=== PATIENT | male | born 1985 | race Caucasian/White ===

== ENCOUNTER 2018-03-21 16:32 | Emergency (ER) | END 2018-03-21 19:02 | disposition left against medical advice (07) ==

== ENCOUNTER 2018-05-05 17:54 | Emergency (ER) | END 2018-05-06 05:50 ==

== ENCOUNTER 2018-09-10 18:22 | Emergency (ER) | payer OTHER ==
[~2018-09-10] VITALS: Ht 167.6 cm; Wt 65.1 kg
[2018-09-10 18:26] VITALS: Ht 167.6 cm; Wt 65.1 kg
[2018-09-10] MEDS ORDERED: LORAZEPAM 2 MG INJ IM ONE (22:30)
[2018-09-11] MEDS ORDERED: QUET100T32 PO
[2018-09-11] MEDS ORDERED: GABA100C14 PO
[2018-09-11] MEDS ORDERED: ESCI20TA38 PO
[2018-09-11 00:21] VITALS: BP 125/65; PULSE 72; RESP 16
--- NOTE | 2018-09-25 02:35 | ERD ---
ER Documentation Chief Complaint Chief Complaint took meth 3 days ago, insomnia, poor appetite, anxious. HPI This is a 32-year-old male 10 minutes on over the past 3 days now complains of i nsomnia and poor appetite and anxiety. Denies suicidal homicidal ideation. Denies auditory or visual hallucinations. Denies any other current complaints. ROS All systems reviewed and are negative except as per history of present illness. Medications Home Meds Reported Medications Gabapentin* (Gabapentin*) 100 Mg Capsule, 100 MG PO QHS for 30 Days, #30 09/11/18 Escitalopram Oxalate* (Escitalopram Oxalate*) 20 Mg Tablet, 20 MG PO QAM for 30 Days, #30 09/11/18 Quetiapine Fumarate* (Quetiapine Fumarate*) 100 Mg Tablet, 100 MG PO QHS for 30 Days, #30 09/11/18 Allergies Allergies: Coded Allergies: codeine (Verified Allergy, Unknown, 09/10/18) PMhx/Soc Medical and Surgical Hx: pt denies Surgical Hx Hx Psychiatric Problems: Yes (auditory hallucinations) Hx Miscellaneous Medical Probl: Yes (drug abuse) Hx Alcohol Use: Yes Hx Substance Use: Yes (meth, heroin) Hx Tobacco Use: Yes Smoking Status: Current every day smoker Physical Exam Physical Exam Const: No acute distress Head: Atraumatic Eyes: Normal Conjunctiva ENT: Normal External Ears, Nose and Mouth. Neck: Full range of motion. No meningismus. Resp: Clear to auscultation bilaterally Cardio: Regular rate and rhythm, no murmurs Abd: Soft, non tender, non distended. Normal bowel sounds Skin: No petechiae or rashes Back: No midline or flank tenderness Ext: No cyanosis, or edema Neur: Awake and alert Psych: Normal Mood and Affect Results 24 hrs Current Medications Medications Dose Sig/Suma Start Time Status Last (Trade) Ordered Route PRN Stop Time Admin Dose Reason Admin Lorazepam 2 mg ONCE ONCE 09/10/18 DC 09/10/18 (Ativan) IM 22:30 22:32 09/10/18 22:31 Procedures/MDM Medical decision makin mL with drug abuse. Treated with lorazepam with good response. Advised stop using drugs. Follow-up with PCP. Return for worsening symptoms. Departure Diagnosis: Primary Impression: Drug abuse Condition: Stable Patient Instructions: Drug Abuse EDY PRATT Sep 25, 2018 02:35
== END 2018-09-11 00:22 | disposition home or self-care (01) ==
LOC: E/R 18:22
DX: F15.10 Other stimulant abuse, uncomplicated (principal); F17.210 Nicotine dependence, cigarettes, uncomplicated
CPT/HCPCS: 96372; J2060; Z7502

== ENCOUNTER 2018-11-10 12:57 | Emergency (ER) | payer OTHER ==
[~2018-11-10] VITALS: Ht 167.6 cm; Wt 62.0 kg
[~2018-11-10 12:57] MED LIST: ESCI20TA38 PO; GABA100C14 PO; QUET100T32 PO
[2018-11-10 13:01] VITALS: Ht 167.6 cm; Wt 62.0 kg
--- NOTE | 2018-11-10 14:52 | PSY ---
Date/Time of Note Date/Time of Note DATE: 11/10/18 TIME: 17:49 Psychiatric Subjective Eval Consent Pt consented to telemedicine: Yes Subjective Evaluation Patient location: emergency Chief Complaint: pt is bib girlfriend with c/o meth use and unable to sleep for a few days History of present illness HPI: 33 yo male wtih ho cocaine use, bib girlfriend due to using cocaine and heroin and amphetamine and not sleeping, as well as AH ("musical"). Pt denies si but nurse reports pt had mentioned si upon arrival. pt reports he was feeling very stressed. Past Psych Hx: + ho psych admits and - suicide attempts PMHx: + ho epilepsy Meds: none allergies: codeine MSE: pt very agitated, constantly moving, cooperative, shirtless, many tattoos, slightly elevated irritable mood, circumsstantial, denies delusions + Ah denies si Imp: 33 yo male with psycosis, substance use vol psych admit utox for moderate agitation zyprexa 5mg po prn for severe agitation chlorpromazine 25mg imp rn Medical history Problems Medical Problems: (1) Drug abuse Status: Acute (2) Drug abuse Status: Acute (3) Heroin abuse Status: Acute (4) Suicidal ideation Status: Acute Allergies: Coded Allergies: codeine (Verified Allergy, Unknown, 09/10/18) Assessment and Plan Recommendation/Plan Multiple antipsychotics: No Discharge Disposition: Psychiatric inpatient Legal Status: Voluntary [place] GRIMES November 10, 2018 14:52
[2018-11-10] MEDS ORDERED: DIAZEPAM 5 MG TAB PO ONE (16:00)
[2018-11-10 17:09] VITALS: BP 130/68; PULSE 99; RESP 20
--- NOTE | 2018-11-10 17:14 | ERD ---
ER Documentation Chief Complaint Chief Complaint pt is bib girlfriend with c/o meth use and unable to sleep for a few days HPI This is a 33-year-old male with a past medical history of psychosis and polysubstance abuse who is presenting with concerns of substance-induced psychosis. The patient reports using meth and heroin daily. He reports that he has not been able to sleep for over 3 days and he is starting to hear things. H e endorses auditory hallucinations, and he reports that they have started to become very dark, but he does not elaborate further. He does report that the voices never tell him to harm himself. he does not endorse suicidal or homicidal ideations. He does not endorse visual hallucinations. The patient denies feeling sick recently. The patient denies fever or chills. The patient has had no headache or vision changes. The patient does not endorse neck or back pain. The patient denies lightheadedness or dizziness. The patient has had no chest pain or trouble breathing. The patient denies nausea or vomiting. The patient denies abdominal pain. The patient denies changes to bowel movements or urination. The patient has had no focal deficits. The patient has had no weakness or numbness or tingling to the face or extremities. ROS All systems reviewed and are negative except as per history of present illness. Medications Home Meds Reported Medications Gabapentin* (Gabapentin*) 100 Mg Capsule, 100 MG PO QHS for 30 Days, #30 09/11/18 Escitalopram Oxalate* (Escitalopram Oxalate*) 20 Mg Tablet, 20 MG PO QAM for 30 Days, #30 09/11/18 Quetiapine Fumarate* (Quetiapine Fumarate*) 100 Mg Tablet, 100 MG PO QHS for 30 Days, #30 09/11/18 Allergies Allergies: Coded Allergies: codeine (Verified Allergy, Unknown, 09/10/18) PMhx/Soc History of Surgery: No Hx Neurological Disorder: No Hx Respiratory Disorders: No Hx Cardiac Disorders: No Hx Psychiatric Problems: Yes (auditory hallucinations) Hx Miscellaneous Medical Probl: Yes (drug abuse) Hx Alcohol Use: Yes Hx Substance Use: Yes (meth, heroin) Hx Tobacco Use: Yes Smoking Status: Current every day smoker FmHx Family History: No diabetes Physical Exam Vitals Vital Signs Date Temp Pulse Resp B/P (MAP) Pulse Ox O2 O2 Flow FiO2 Time Delivery Rate 5/11/19 98.3 132 18 130/74 98 13:01 (92) Physical Exam Const: No acute distress Head: Atraumatic Eyes: Normal Conjunctiva ENT: Normal External Ears, Nose and Mouth. Neck: Full range of motion. No meningismus. Resp: Clear to auscultation bilaterally Cardio: Regular rhythm, tachycardia, no murmurs Abd: Soft, non tender, non distended. Normal bowel sounds Skin: No petechiae or rashes Back: No midline or flank tenderness Ext: No cyanosis, or edema Neur: Awake and alert Psych: Anxious, agitated, fidgety, reported auditory hallucinations, no visual hallucinations, no suicidal or homicidal ideations. Result Diagram: 11/10/18 1501 11/10/18 1501 Results 24 hrs Laboratory Tests Test 11/10/18 15:01 11/10/18 16:00 White Blood Count 14.0 10^3/ul Red Blood Count 4.62 10^6/ul Hemoglobin 13.3 g/dl Hematocrit 39.7 % Mean Corpuscular Volume 85.9 fl Mean Corpuscular Hemoglobin 28.8 pg Mean Corpuscular Hemoglobin Concent 33.5 g/dl Red Cell Distribution Width 13.9 % Platelet Count 373 10^3/UL Mean Platelet Volume 11.6 fl Immature Granulocytes % 0.400 % Neutrophils % 75.9 % Lymphocytes % 13.2 % Monocytes % 9.8 % Eosinophils % 0.2 % Basophils % 0.5 % Nucleated Red Blood Cells % 0.0 /100WBC Immature Granulocytes # 0.050 10^3/ul Neutrophils # 10.7 10^3/ul Lymphocytes # 1.9 10^3/ul Monocytes # 1.4 10^3/ul Eosinophils # 0.0 10^3/ul Basophils # 0.1 10^3/ul Nucleated Red Blood Cells # 0.0 10^3/ul Sodium Level 144 mmol/L Potassium Level 4.0 mmol/L Chloride Level 105 mmol/L Carbon Dioxide Level 25 mmol/L Anion Gap 14 Blood Urea Nitrogen 38 mg/dl Creatinine 1.38 mg/dl Est Glomerular Filtrat Rate mL/min > 60 mL/min Glucose Level 117 mg/dl Calcium Level 10.3 mg/dl Total Bilirubin 0.5 mg/dl Direct Bilirubin 0.00 mg/dl Indirect Bilirubin 0.5 mg/dl Aspartate Amino Transf (AST/SGOT) 100 IU/L Alanine Aminotransferase (ALT/SGPT) 52 IU/L Alkaline Phosphatase 109 IU/L Total Protein 9.1 g/dl Albumin 5.3 g/dl Globulin 3.80 g/dl Albumin/Globulin Ratio 1.39 Salicylates Level < 1.0 mg/dl Acetaminophen Level < 10.0 ug/ml Ethyl Alcohol Level < 10.0 mg/dl Urine Color YELLOW Urine Clarity SLIGHTLY CLOUDY Urine pH 5.0 Urine Specific [place] 1.033 Urine Ketones 1+ mg/dL Urine Nitrite NEGATIVE mg/dL Urine Bilirubin NEGATIVE mg/dL Urine Urobilinogen NEGATIVE mg/dL Urine Leukocyte Esterase NEGATIVE James/ul Urine Microscopic RBC 1 /HPF Urine Microscopic WBC 4 /HPF Urine Mucus MANY /HPF Urine Hemoglobin NEGATIVE mg/dL Urine Glucose NEGATIVE mg/dL Urine Total Protein 1+ mg/dl Urine Opiates Screen Positive Urine Barbiturates Negative Urine Amphetamines Screen POSITIVE Urine Benzodiazepines Screen Negative Urine Cocaine Screen Negative Urine Cannabinoids Negative Current Medications Medications Dose Sig/Suma Start Time Status Last (Trade) Ordered Route PRN Stop Time Admin Dose Reason Admin Diazepam 5 mg ONCE ONCE 11/10/18 DC 11/10/18 (Valium) PO 16:00 16:03 11/10/18 16:01 Procedures/MDM MDM The patient's presentation warrants further investigation. Previous medical records, if available, were reviewed. LABS The patient's laboratory testing was obtained and reviewed. No emergent treatment was required unless described below. CBC: Leukocytosis, likely reactive. Mild normocytic anemia, not emergent. Normal platelet count. Chemistry: Elevated BUN and creatinine, concerning for mild NOAH. No E/o severe acidosis or alkalosis or liver disease or diabetic ketoacidosis Urine: No E/o acute infection or hematuria Tox: No E/o alcohol abuse. E/o meth and opiate abuse. No E/o salicylate or acetaminophen use. TREATMENT/DISPOSITION The patient's workup included a medical screening examination, laboratory an alysis, and diagnostic imaging such as EKG, chest x-ray or CT brain as indicated. The patient's laboratory analysis, diagnostic imaging do not suggest an acute organic pathology. At this time I believe the patient's presentation is consistent with underlying psychiatric illness and likely exacerbation of this illness and/or psychosis. I have a much lower clinical concern for delirium or acute organic pathology such as toxicologic, metabolic, ischemic, intracranial hemorrhage, infectious process. However, we must rule this out prior to relying a diagnosis of underlying psychiatric illness. The patient is medically cleared for psychiatric evaluation. I kept the patient and/or family informed of laboratory and diagnostic imaging results throughout the emergency room course. The patient did not require any physical or chemical restraint while under my care. Psychiatric consultation: Telemetry medicine psychiatry has been consulted on this case to evaluate the patient for possible acute psychiatric illness that would require inpatient hospitalization. The psychiatrist recommended a voluntary hold. Medication recommendations will be addressed. OBSERVATION NOTE Time: 4 hours Family Hx: No Diabetes Evaluation: Multiple exams showed improving symptoms and no evidence of worsening psychosis DISCHARGE The patient was pending a bed search and transfer to a psychiatric hospital for a voluntary admission. While waiting, the patient requested discharge. I do suspect substance-induced psychosis and agitation. The patient was given a dose of Valium in the emergency department with improvement of his anxiousness. The patient does not endorse suicidal or homicidal ideations. The patient reports that he has no intention of hurting himself. He just wants to sleep off his s ubstance abuse. I do not feel that the patient is a danger to himself or others. The patient was strongly encouraged to follow-up with his primary care physician. The patient was offered rehabilitation resources as well. Upon reevaluation of the patient, symptoms have improved. No emergent diagnoses were identified. At this time, I feel that the patient stable for discharge. The patient was instructed to follow-up with a primary care physician in 1-3 days. The patient left without discharge papers. Prescriptions: None The patient's blood pressure was elevated at greater than 120/80 while in the emergency department. The patient was otherwise stable with no evidence of hypertensive urgency or emergency. The patient does not require admission for blood pressure control. I have discussed with the patient the risks of hypertension. I have instructed the patient to return to the ER for any new or worsening symptoms including chest pain, shortness of breath, headache, blurred vision, confusion, nausea, vomiting or LOC. I have advised the patient to follow up with the primary care physician for outpatient monitoring and treatment for hypertension in 1-3 days. Disclaimer: Inadvertent spelling and grammatical errors are likely due to EHR/dictation software use and do not reflect on the overall quality of patient care. Note that the electronic time recorded on this note does not necessarily reflect the actual time of the patient encounter. Departure Diagnosis: Primary Impression: Substance-induced psychotic disorder Additional Impressions: Auditory hallucinations Methamphetamine abuse Heroin abuse Tachycardia Anxiousness Agitation Acute kidney injury Leukocytosis Leukocytosis type: unspecified Qualified Codes: D72.829 - Elevated white blood cell count, unspecified Normocytic anemia Condition: Stable VICTORINO MORALES MD November 10, 2018 17:14
[2018-11-10] MEDS ORDERED: BUSP10TA2 PO (17:20)
== END 2018-11-10 17:44 | disposition left against medical advice (07) ==
LOC: E/R 12:57
DX: F15.151 Other stimulant abuse with stimulant-induced psychotic disorder with hallucinations (principal); F17.210 Nicotine dependence, cigarettes, uncomplicated; R00.0 Tachycardia, unspecified; F41.9 Anxiety disorder, unspecified; R45.1 Restlessness and agitation; N17.9 Acute kidney failure, unspecified; D72.829 Elevated white blood cell count, unspecified; D64.9 Anemia, unspecified; F11.151 Opioid abuse with opioid-induced psychotic disorder with hallucinations
CPT/HCPCS: 80053; 80307; 81001; 85025; Z7502; Z7610; 99283

== ENCOUNTER 2018-11-10 23:54 | Emergency (ER) | payer OTHER ==
[~2018-11-10] VITALS: Ht 170.2 cm; Wt 80.0 kg
[~2018-11-10 23:54] MED LIST changes: +BUSP10TA2 PO
[2018-11-10] MEDS ORDERED: LORAZEPAM 2 MG INJ ONE (23:59)
[2018-11-10] MEDS ORDERED: DIPHENHYDRAMINE 50 MG INJ ONE (23:59)
[2018-11-10] MEDS ORDERED: HALOPERIDOL 5 MG INJ ONE (23:59)
[2018-11-11] MEDS ORDERED: LORAZEPAM 2 MG INJ IM STA (00:02)
[2018-11-11] MEDS ORDERED: HALOPERIDOL 5 MG INJ IM STA (00:02)
[2018-11-11 00:20] VITALS: Ht 170.2 cm; Wt 80.0 kg
[2018-11-11] MEDS ORDERED: DIPHENHYDRAMINE 50 MG INJ IM ONE (00:30)
[2018-11-11] MEDS ORDERED: KETAMINE (50 MG/ML) 10 ML VIAL IM ONE (00:30)
[2018-11-11] MEDS ORDERED: MIDAZOLAM 1 MG/ML 2 ML INJ IV ONE (06:30)
--- NOTE | 2018-11-11 06:38 | ERD ---
ER Documentation Chief Complaint Chief Complaint PT BIBA 41 FOR METH USE, PT COMBATIVE AND IN 4PTS HPI 33-year-old male presents for evaluation of missed use, presented combative in four-point restraints, history limited secondary to patient's severe agitation. Apparently patient had been seen here earlier, and plan had been for voluntary psychiatric admit however the patient eloped. Per report, his girlfriend had called police because the patient was very agitated. ROS All systems reviewed and are negative except as per history of present illness. Medications Home Meds Reported Medications Buspirone Hcl* (Buspirone Hcl*) 10 Mg Tab, 10 MG PO BID, TAB 11/10/18 Gabapentin* (Gabapentin*) 100 Mg Capsule, 100 MG PO QHS for 30 Days, #30 09/11/18 Escitalopram Oxalate* (Escitalopram Oxalate*) 20 Mg Tablet, 20 MG PO QAM for 30 Days, #30 09/11/18 Quetiapine Fumarate* (Quetiapine Fumarate*) 100 Mg Tablet, 100 MG PO QHS for 30 Days, #30 09/11/18 Allergies Allergies: Coded Allergies: codeine (Verified Allergy, Unknown, 11/10/18) PMhx/Soc History of Surgery: No Hx Neurological Disorder: No Hx Respiratory Disorders: No Hx Cardiac Disorders: No Hx Psychiatric Problems: Yes (auditory hallucinations) Hx Miscellaneous Medical Probl: Yes (drug abuse) Hx Alcohol Use: Yes Hx Substance Use: Yes (meth, heroin) Hx Tobacco Use: Yes Smoking Status: Current every day smoker Physical Exam Vitals Vital Signs Date Temp Pulse Resp B/P (MAP) Pulse Ox O2 O2 Flow FiO2 Time Delivery Rate 11/11/18 79 16 121/81 99 Room Air 06:25 (94) 11/11/18 78 10 120/72 100 Room Air 06:06 (88) 11/11/18 81 24 104/83 97 Room Air 03:14 (90) 11/11/18 108 21 118/78 97 Room Air 01:12 (91) 11/11/18 99.1 123 20 110/84 100 00:20 (93) Physical Exam Const: Screaming, belligerent combative Head: Atraumatic Eyes: Normal Conjunctiva, pupils dilated ENT: Normal External Ears, Nose and Mouth. Neck: Full range of motion. No meningismus. Resp: Clear to auscultation bilaterally Cardio: Regular rate and rhythm, no murmurs Abd: Soft, non tender, non distended. Normal bowel sounds Skin: No petechiae or rashes Back: No midline or flank tenderness Ext: No cyanosis, or edema Neur: Agitated, combative Psych: Screaming, agitated Results 24 hrs Current Medications Medications Dose Sig/Suma Start Time Status Last (Trade) Ordered Route PRN Stop Time Admin Dose Reason Admin Lorazepam 2 mg ONCE STAT 11/11/18 DC 11/10/18 (Ativan) IM 00:02 23:55 11/11/18 00:04 Haloperidol 5 mg ONCE STAT 11/11/18 DC 11/10/18 (Haldol) IM 00:02 23:55 11/11/18 00:04 50 mg ONCE ONCE 11/11/18 DC 11/10/18 Diphenhydrami IM 00:30 23:55 ne HCl 11/11/18 00:31 (Benadryl) Ketamine 320 mg ONCE ONCE 11/11/18 DC 11/11/18 HCl IM 00:30 00:05 (Ketalar) 11/11/18 00:31 Midazolam 2 mg ONCE ONCE 11/11/18 DC HCl IV 06:30 (Versed) 11/11/18 06:31 Procedures/MDM 33-year-old male presents for methamphetamine intoxication and agitation, patient was recently low for voluntary admission, there is concern for acute psychosis, this patient will require psychiatric consult, once he is awake kentrell ugh to be interviewed, he required chemical sedation on evaluation. He is otherwise medically cleared. Departure Diagnosis: Primary Impression: Altered mental status Condition: Stable SERENA QUINTANILLA MD November 11, 2018 06:38
--- NOTE | 2018-11-11 15:34 | PSY ---
Date/Time of Note Date/Time of Note DATE: 11/11/18 TIME: 18:31 Psychiatric Subjective Eval Consent Pt consented to telemedicine: Yes Subjective Evaluation Patient location: emergency Chief Complaint: PT BIBA 41 FOR METH USE, PT COMBATIVE AND IN 4PTS History of present illness HPI: 33 yo male seen by this MD yesterday. per that note, "wtih ho cocaine use, bib girlfriend due to using cocaine and heroin and amphetamine and not sleeping, as well as AH ("musical"). Pt denies si but nurse reports pt had mentioned si upon arrival. pt reports he was feeling very stressed." Pt was going to have voluntary admission then eloped. Then came in to day very agitated, combative, required 4 pt restraints. Md spoke with pt. He says he had a "panic attack." Was evasive, minimizing, admitss to using methamphetamine. Denies si now but per notes had si upon admission yesterday. Past Psych Hx: + ho psych admits and - suicide attempts PMHx: + ho epilepsy Meds: none allergies: codeine MSE: psychomotor normal, uncooperative, , slightly elevated irritable mood, evasivie, denies delusion denies Ah denies si, poor insight Imp: 33 yo male with psychosis, substance use, severe agitation 5150 as pt has demonstrated inability to function outside of hospital likely 5150 admission though recommend parallel hx from girlfriend for more info about recent functioning utox for moderate agitation zyprexa 5mg po prn for severe agitation chlorpromazine 25mg imp rn Medical history Problems Medical Problems: (1) Acute kidney injury Status: Acute (2) Agitation Status: Acute (3) Altered mental status Status: Acute (4) Anxiousness Status: Acute (5) Auditory hallucinations Status: Acute (6) Drug abuse Status: Acute (7) Drug abuse Status: Acute (8) Heroin abuse Status: Acute (9) Heroin abuse Status: Acute (10) Leukocytosis Status: Acute (11) Methamphetamine abuse Status: Acute (12) Normocytic anemia Status: Acute (13) Substance-induced psychotic disorder Status: Acute (14) Suicidal ideation Status: Acute (15) Tachycardia Status: Acute Allergies: Coded Allergies: codeine (Verified Allergy, Unknown, 11/11/18) Assessment and Plan Recommendation/Plan Multiple antipsychotics: No Discharge Disposition: Psychiatric inpatient Legal Status: Place involuntary hold [place] GRIMES November 11, 2018 15:34
[2018-11-12 00:16] VITALS: BP 101/52; PULSE 77; RESP 18
== END 2018-11-12 00:30 ==
LOC: E/R 23:54
DX: R41.82 Altered mental status, unspecified (principal); F17.210 Nicotine dependence, cigarettes, uncomplicated
CPT/HCPCS: 96372; J1200; J1630; J2060; Z7502